=== PATIENT | female | born 1945 | race Caucasian/White ===

== ENCOUNTER 2016-11-02 07:41 | Day surgery (SDC) | payer MEDICARE, OTHER ==
[2016-10-28 17:58] LABS: HEMATOCRIT 36.4 % (36.0-48.0); HEMOGLOBIN 11.6 g/dL (12.0-16.0)
[2016-10-28 18:04] LABS: PARTIAL THROMBO TIME 27.5 SEC (22.5-37.2)
[2016-10-28 18:06] LABS: BUN (BLOOD UREA NITROGEN) 11 MG/DL (6-23); CALCIUM, SERUM 8.8 MG/DL (8.5-10.4); CHLORIDE, SERUM 104 MMOL/L (96-112); CO2 (CARBON DIOXIDE) 30 MMOL/L (24-34); CREATININE 0.75 MG/DL (0.55-1.02); GFR AFRICAN AMERICAN 93 ML/MIN (>=60); GFR NON AFRICAN AMERICAN 80 ML/MIN (>=60); GLUCOSE, SERUM 119 MG/DL (60-99); POTASSIUM, SERUM 4.3 MMOL/L (3.5-5.3); SODIUM, SERUM 141 MMOL/L (135-148)
--- NOTE | ~2016-11-02 | OP ---
Record Of Operation [facility] [address] [place]. [address] NAME: SULY BOO : 43 STATUS : [facility]#: [id number] AGE: 70 ADM/REG DATE : 11/02/16 MR#: [id number] REPORT SERV DATE: 11/06/16 DICTATED BY: GIOVANNA CRISTINA DATE: 11/06/16 REPORT STATUS : Draft TRANSCRIBED BY: MODElaina DATE: 11/06/16 DATE OF PROCEDURE: 11/02/2016 PREOPERATIVE DIAGNOSIS: Right tympanic membrane perforation. POSTOPERATIVE DIAGNOSIS: Right tympanic membrane perforation. PROCEDURE: Right-sided fat graft myringoplasty. SURGEON: Giovanna Cristina M.D. ANESTHESIA: General endotracheal anesthesia was utilized. COMPLICATIONS: No complications. ESTIMATED BLOOD LOSS: 3 mL of blood loss. SPECIMENS: Fat grafts taken from the right auricular lobule. INDICATIONS FOR PROCEDURE: This is a 70-year-old female with a history of right-sided tympanic membrane perforation and previous failed tympanoplasty and paper patch myringoplasty, but she has 15% perforation in the inferior portion of the right side of her drum, usually easily visualized and has a healthy-appearing middle ear space. There was a significant conductive hearing loss on this side. She has indications for repair. She would be a good candidate for fat graft. Described the risks and benefits of the procedure including blood loss, infection, failure of graft and continued conductive hearing loss. She voiced understanding and signed the consent. Consent was placed on the chart at the time of operation. PROCEDURE IN DETAIL: The patient was wheeled to the OR suite, placed on the OR table in supine position. She was intubated and placed under general endotracheal anesthesia without difficulty. Head was lifted. The anesthesiologist brought the operating microscope to the table, cleaned the using curette and speculum, visualized the tympanic membrane. We then prepped the patient for the procedure. I injected the posterior lobular area with 0.5 mL of 1% lidocaine with 1:100,000 epinephrine. I would scrub and gown for the procedure. We would begin. I would use loupe magnification at the first part for the fat graft. After she was scrubbed and I was ready to go, I would use a 15 blade to make an incision on the posterior portion of the right-sided lobule. I would dissect out a good portion of the subcutaneous fat, and put this off in the saline for use later. I would close the incision approximately 1 cm in length with 3-4 simple interrupted 4-0 chromic gut sutures. Once this was accomplished, I turned my attention to the ear canal that had been prepped and draped, and we would irrigate this with Betadine followed by saline until the saline clarified. I would go by reaming the perforation using a pick and cups and had a good removal circumferentially. Good visualization through the operating microscope and speculum. I would then take my dry Gelfoam, place it in the hypotympanum deep to the perforation. I would then cut a portion of my fat graft approximately a third of it off and Record Of Operation [address] [place]. [address] NAME: SULY BOO : 43 STATUS : [facility] PAT#: [id number] AGE: 70 ADM/REG DATE : 11/02/16 MR#: [id number] REPORT SERV DATE: 11/06/16 DICTATED BY: GIOVANNA CRISTINA DATE: 11/06/16 REPORT STATUS : Draft TRANSCRIBED BY: ROCHELLE DATE: 11/06/16 dumbbelled the fat graft into the perforation itself until approximately 1/3 was above the drum and 2/3 were sitting in the middle ear space on the Gelfoam. I would then place a dry piece of Gelfoam over the fat graft itself and then, Ciprodex soaked Gelfoam on top of this. I would then fill the canal using bacitracin and then a cottonoid. I would place the Mastisol on the auricle, and place a Band-Aid on top of this. I would place Steri-Strips on the posterior incision. At this point, the procedure was complete. She was returned care to anesthesiologist, subsequently awoken and stably transferred to the recovery area. There were no complications. The patient tolerated the procedure well. MELANIE/ROCHELLE Giovanna Cristina M.D. / [id number] CC: Law Noguera James
[~2016-11-02 07:41] MED LIST: AMIT25 PO; FISH-EPA1000 MG PO; HYDROCHLOROT25 MG PO; KLONO1 PO; KLOR-CON20 MEQ PO; LOP25; LOP25 PO; LOP50 PO; MAGNESIUM PO; NORV10 PO; PLAVIX PO; PRAVAC PO; PRILO PO; PROZAC40 MG PO; SYN125 PO; ZYRTEC ALLGY10 MG PO
== END 2016-11-02 22:06 | disposition home or self-care (01) ==
LOC: SDC 07:41
PROVIDERS: Otolaryngology
PROC: 09U707Z Supplement Right Tympanic Membrane with Autologous Tissue Substitute, Open Approach (ICD-10-PCS; principal; 2016-11-02 08:45)
DX: H72.01 Central perforation of tympanic membrane, right ear (principal); H90.11 Conductive hearing loss, unilateral, right ear, with unrestricted hearing on the contralateral side; H90.3 Sensorineural hearing loss, bilateral; E89.0 Postprocedural hypothyroidism; E78.00 Pure hypercholesterolemia, unspecified; F41.9 Anxiety disorder, unspecified; F32.9 Major depressive disorder, single episode, unspecified; Z79.899 Other long term (current) drug therapy; Z88.5 Allergy status to narcotic agent; Z98.890 Other specified postprocedural states; Z82.49 Family history of ischemic heart disease and other diseases of the circulatory system; Z82.3 Family history of stroke; Z87.891 Personal history of nicotine dependence; Z86.73 Personal history of transient ischemic attack (TIA), and cerebral infarction without residual deficits
CPT/HCPCS: 36415; 80048; 85014; 85018; 85730; 93005; A9270-GY; J1170; J2405; J3010